=== PATIENT | female | born 1930 | race Asian ===

== ENCOUNTER 2018-07-12 22:00 | Emergency (ER) | payer OTHER, BC ==
[~2018-07-12] VITALS: Ht 165.1 cm; Wt 71.2 kg
[~2018-07-12 22:00] MED LIST: ABILIFY5 M1 PO; ARICEPT5 MG PO; DEPAKOTE ER250 M1 PO; DILTIAZEM HCL120 M2 PO; DILTIAZEM HCL240 MG PO; LOMOTIL1 TAB PO; LORAZEPAM0.5 MG PO; METOPROLOL TART25 M1 PO; NAMENDA XR7 MG PO; NAMENDA10 M2 PO; XARELTO10 M1 PO; ZOLOFT100 MG PO
[2018-07-12 22:16] VITALS: Ht 165.1 cm; Wt 71.2 kg
[2018-07-13 00:37] VITALS: BP 148/92
== END 2018-07-13 00:37 | disposition home or self-care (01) ==
LOC: ED 22:00
DX: S20.311A Abrasion of right front wall of thorax, initial encounter (principal); F03.90 Unspecified dementia, unspecified severity, without behavioral disturbance, psychotic disturbance, mood disturbance, and anxiety; I10 Essential (primary) hypertension; F32.9 Major depressive disorder, single episode, unspecified; I48.91 Unspecified atrial fibrillation; W18.39XA Other fall on same level, initial encounter; Y93.89 Activity, other specified; Y92.89 Other specified places as the place of occurrence of the external cause; Y99.8 Other external cause status